=== PATIENT | female | born 1950 | race Caucasian/White ===

== ENCOUNTER 2018-10-10 16:53 | Inpatient (IN) | payer OTHER, MEDICAID ==
[~2018-10-10] VITALS: Ht 170.2 cm; Wt 101.7 kg
[2018-10-10 18:39] LABS: BASOPHIL % 0.9 % (0-2); PLATELET COUNT 245 x10^3mcL (130-400); RED CELL DISTRIBUTION WIDTH 14.8 % (11.5-14.5)
[2018-10-10 19:20] LABS: CARBON DIOXIDE 25.8 mmol/L (21-32); CHLORIDE SERUM 113 mmol/L (98-107); CREATININE SERUM 0.9 mg/dL (0.6-1.0); GFR1 > 60 mL/min; GLUCOSE SERUM 100 mg/dL (74-106); POTASSIUM SERUM 4.2 mmol/L (3.5-5.1); SODIUM SERUM 146 mmol/L (136-145)
[2018-10-10] MEDS ORDERED: CENTRUM ADULTS1 EACH PO (19:26)
[2018-10-10 19:27] LABS: ALBUMIN 3.6 g/dL (3.4-5.0); ALKALINE PHOSPHATASE 93 U/L (46-116); ALT/SGPT 33 U/L (14-59); AST/SGOT 21 U/L (15-37); BILIRUBIN TOTAL 0.36 mg/dL (0.20-1.00); MAGNESIUM 2.2 mg/dL (1.8-2.4); TOTAL PROTEIN, SERUM 6.2 g/dL (6.4-8.2)
[2018-10-10] MEDS ORDERED: TRAMADOL HCL50 MG PO (19:27)
[2018-10-10] MEDS ORDERED: BENADRYL ALLERG25 M1 PO (19:27)
[2018-10-10] MEDS ORDERED: SEROQUEL XR50 MG PO (19:27)
[2018-10-10] MEDS ORDERED: MIRTAZAPINE15 M2 PO (19:28)
[2018-10-10] MEDS ORDERED: NEU300 PO (19:28)
[2018-10-10] MEDS ORDERED: NAMZARIC1 ECC PO (19:28)
[2018-10-10] MEDS ORDERED: BACLOFEN10 MG PO (19:28)
[2018-10-10] MEDS ORDERED: PREDNISONE2.5 MG PO (19:29)
[2018-10-10] MEDS ORDERED: MELOXICAM7.5 M1 PO (19:29)
[2018-10-10 22:50] LABS: UA SPECIFIC GRAVITY >=1.030 (1.005-1.035); microscopic required? YES; urine erythrocyte 2+ (NEGATIVE)
[2018-10-11 10:13] VITALS: BP 122/68
[2018-10-11 17:50] VITALS: BP 143/78
[2018-10-12 02:07] VITALS: BP 141/89
[2018-10-12 15:03] VITALS: Ht 170.2 cm; Wt 101.7 kg
== END 2018-10-12 03:13 | disposition short-term general hospital (02) | DRG 64 ==
LOC: ED 16:53 → MU 10-11 00:23 → IC 10-11 07:40 → MU 10-11 07:42 → IC 10-11 17:42 → MU 10-11 17:56 → IC 10-11 17:57 → MU 10-11 17:59 → IC 10-11 18:00
PROVIDERS: Emergency Medicine
DX: I62.01 Nontraumatic acute subdural hemorrhage (principal); G93.41 Metabolic encephalopathy; N39.0 Urinary tract infection, site not specified; M79.7 Fibromyalgia; R29.6 Repeated falls; F01.50 Vascular dementia, unspecified severity, without behavioral disturbance, psychotic disturbance, mood disturbance, and anxiety; Z68.34 Body mass index [BMI] 34.0-34.9, adult
CPT/HCPCS: J0696; J1200; J1885; J2060; J7050; J7512; Q0092

== ENCOUNTER 2018-10-24 18:04 | Inpatient (IN) | payer OTHER, MEDICAID ==
[~2018-10-24] VITALS: Ht 170.2 cm; Wt 103.0 kg
[~2018-10-24 18:04] MED LIST: BACLOFEN10 MG PO; BENADRYL ALLERG25 M1 PO; CENTRUM ADULTS1 EACH PO; MELOXICAM7.5 M1 PO; MIRTAZAPINE15 M2 PO; NAMZARIC1 ECC PO; NEU300 PO; PREDNISONE2.5 MG PO; SEROQUEL XR50 MG PO; TRAMADOL HCL50 MG PO
[2018-10-24 18:07] VITALS: Ht 170.2 cm; Wt 103.0 kg
[2018-10-24 19:16] LABS: BASOPHIL % 0.1 % (0-2); PLATELET COUNT 234 x10^3mcL (130-400)
[2018-10-24 19:20] LABS: CALCIUM 9.2 mg/dL (8.5-10.1); CARBON DIOXIDE 26.7 mmol/L (21-32); CHLORIDE SERUM 103 mmol/L (98-107); CREATININE SERUM 1.4 mg/dL (0.6-1.0); GFR1 40 mL/min; GLUCOSE SERUM 106 mg/dL (74-106); POTASSIUM SERUM 4.3 mmol/L (3.5-5.1); SODIUM SERUM 138 mmol/L (136-145)
[2018-10-24 19:25] LABS: ALBUMIN 3.5 g/dL (3.4-5.0); ALKALINE PHOSPHATASE 119 U/L (46-116); ALT/SGPT 64 U/L (14-59); AST/SGOT 70 U/L (15-37); BILIRUBIN TOTAL 0.7 mg/dL (0.20-1.00); TOTAL PROTEIN, SERUM 7.1 g/dL (6.4-8.2)
[2018-10-24 20:27] LABS: UA SPECIFIC GRAVITY 1.025 (1.005-1.035); microscopic required? YES; urine erythrocyte 3+ (NEGATIVE)
[2018-10-24] MEDS ORDERED: CLARITIN10 MG PO (21:11)
[2018-10-24] MEDS ORDERED: CENTRUM SILVER1 EAC2 PO (21:11)
[2018-10-24] MEDS ORDERED: MYRBETRIQ50 MG PO (21:12)
[2018-10-24] MEDS ORDERED: SEROQUEL50 M1 PO (21:12)
[2018-10-24] MEDS ORDERED: MIRTAZAPINE15 M2 PO (21:12)
[2018-10-24 22:08] VITALS: BP 96/50
[2018-10-25 05:57] VITALS: BP 103/62
[2018-10-25 08:08] LABS: T4(THYROXINE) 5.3 ug/dL (4.7-13.3)
[2018-10-25 08:16] LABS: ERYTHROCYTE SED RATE 13 mm/hr (0-30)
[2018-10-25 08:42] LABS: BASOPHIL % 0.2 % (0-2); PLATELET COUNT 216 x10^3mcL (130-400); RED CELL DISTRIBUTION WIDTH 14.1 % (11.5-14.5)
[2018-10-25 10:00] VITALS: BP 117/64
[2018-10-25 17:33] VITALS: BP 107/76
[2018-10-25 21:09] VITALS: BP 103/73
[2018-10-26 05:42] VITALS: BP 123/68
[2018-10-26 05:54] LABS: BASOPHIL % 0.7 % (0-2); PLATELET COUNT 213 x10^3mcL (130-400); RED CELL DISTRIBUTION WIDTH 14.3 % (11.5-14.5)
[2018-10-26 06:25] LABS: CALCIUM 8.6 mg/dL (8.5-10.1); CARBON DIOXIDE 26.8 mmol/L (21-32); POTASSIUM SERUM 4.1 mmol/L (3.5-5.1)
[2018-10-26 08:40] VITALS: BP 127/63
[2018-10-26 12:31] LABS: RHEUMATOID ARTHRITIS FACTOR 12.2 IU/mL (0.0-13.9)
[2018-10-26 13:08] VITALS: BP 144/83
[2018-10-26 17:00] VITALS: BP 132/74
[2018-10-26 21:10] VITALS: BP 129/68
[2018-10-27 05:50] VITALS: BP 127/67
[2018-10-27 06:01] LABS: BASOPHIL % 0.5 % (0-2); PLATELET COUNT 219 x10^3mcL (130-400); RED CELL DISTRIBUTION WIDTH 14.1 % (11.5-14.5)
[2018-10-27 06:31] LABS: CALCIUM 8.7 mg/dL (8.5-10.1); CARBON DIOXIDE 28.1 mmol/L (21-32); CHLORIDE SERUM 106 mmol/L (98-107); CREATININE SERUM 0.9 mg/dL (0.6-1.0); GFR1 > 60 mL/min; GLUCOSE SERUM 83 mg/dL (74-106); SODIUM SERUM 141 mmol/L (136-145)
[2018-10-27 09:18] VITALS: BP 147/69
[2018-10-27 10:49] LABS: RAPID PLASMA REAGIN Non Reactive (Non Reactive)
[2018-10-27 13:12] VITALS: BP 148/75
[2018-10-27 21:25] VITALS: BP 130/76
[2018-10-28 05:12] VITALS: BP 113/67
[2018-10-28 09:42] VITALS: BP 138/72
[2018-10-28 14:41] VITALS: BP 116/57
[2018-10-28 15:12] VITALS: BP 116/57
[2018-10-28 17:21] VITALS: BP 131/71
== END 2018-10-28 19:26 | DRG 871 ==
LOC: ED 18:04 → DU 20:37
PROVIDERS: Emergency Medicine; Internal Medicine
DX: A41.9 Sepsis, unspecified organism (principal); G93.41 Metabolic encephalopathy; J69.0 Pneumonitis due to inhalation of food and vomit; N39.0 Urinary tract infection, site not specified; M79.7 Fibromyalgia; G89.29 Other chronic pain; M54.9 Dorsalgia, unspecified; M19.90 Unspecified osteoarthritis, unspecified site; Z91.81 History of falling; F03.90 Unspecified dementia, unspecified severity, without behavioral disturbance, psychotic disturbance, mood disturbance, and anxiety
CPT/HCPCS: 82962; 86431; 97110-GP; 97116-GP; 97530-GP; J0696; J1956; J7030; J7040; J7512; Q0092; Q0163